=== PATIENT | female | born 1960 | race Hispanic/Latino ===

== ENCOUNTER 2020-07-02 12:29 | Emergency (ER) | payer OTHER ==
[~2020-07-02] VITALS: Ht 154.9 cm; Wt 67.1 kg
[2020-07-02] MEDS ORDERED: ONDANSETRON HCL INJ 2MG/ML 2ML 2 MG/ML VIAL IV STA (12:33)
[2020-07-02] MEDS ORDERED: MORPHINE SULFATE INJ 4 MG/ML INJ 1ML IV STA ×2 (12:33→12:39)
[2020-07-02] MEDS ORDERED: SODIUM CHLORIDE 0.9% 1000ML 1,000 ML IV STA (12:33)
--- NOTE | 2020-07-02 12:33 | Emergency Department Note ---
History of Present Illnes History of Present Illness History of Present Illness This is a 59 year old female with month long h/o of abd pain which has progressed to the RUQ and LLQ without n/v/f. Neg US and CT at . Historian: Patient Arrival Mode: Car Onset (how long ago): week(s) (4) Location: RUQ Radiation: Reports abdomen Severity: moderate Onset quality: gradual Duration (how long): week(s) Timing of current episode: constant Progression: worsening Chronicity: new Associated symptoms: Denies denies other symptoms, Denies confusion, Denies chest pain, Denies cough, Denies diaphoresis, Denies fever/chills, Denies headaches, Denies loss of appetite, Denies malaise, Denies nausea/vomiting, Denies rash, Denies seizure, Denies shortness of breath, Denies syncope, Denies weakness, Denies other Previous service: tests performed, observation, one or more referrals Past Medical/Family History Physician Review I have reviewed the patient's past medical and family history. Any updates have been documented here. Past Medical History Recent Fever: No Clinical Suspicion of Infectio: No Past Medical History: None Past Surgical History: None Social History Smoking Cessation: Never Smoker Alcohol Use: None Any Illegal Drug Use: No Review of Systems Review of Systems Constitutional: Reports no symptoms EENTM: Reports no symptoms Cardiovascular: Reports no symptoms Respiratory: Reports no symptoms Gastrointestinal: Reports abdominal pain; Denies nausea, Denies vomiting Genitourinary: Reports no symptoms Musculoskeletal: Reports no symptoms Integumentary: Reports no symptoms Neurological: Reports no symptoms Psychological: Reports no symptoms Endocrine: Reports no symptoms Hematological/Lymphatic: Reports no symptoms Physical Exam Related Data Allergies: Coded Allergies: No Known Allergies (Unverified , 07/02/20) Vital signs reviewed: Yes Physical Exam CONSTITUTIONAL Constitutional: Present well-developed, Present well-nourished HENT HENT: Present normocephalic, Present atraumatic, Present oropharynx clear/moist, Present nose normal HENT L/R: Present left ext ear normal, Present right ext ear normal EYES Eyes: Reports PERRL, Reports conjunctivae normal NECK Neck: Present ROM normal PULMONARY Pulmonary: Present effort normal, Present breath sounds normal CARDIOVASCULAR Cardiovascular: Present regular rhythm, Present heart sounds normal, Present capillary refill normal, Present normal rate GASTROINTESTINAL Abdominal: Present soft, Present tender (RUQ , LLQ) GENITOURINARY Genitourinary: Present exam deferred SKIN Skin: Present warm, Present dry MUSCULOSKELETAL Musculoskeletal: Present ROM normal NEUROLOGICAL Neurological: Present alert, Present oriented x 3, Present no gross motor or sensory deficits PSYCHOLOGICAL Psychological: Present mood/affect normal, Present judgement normal Results Laboratory Lab results reviewed: Yes Imaging Imaging results reviewed: Yes Impressions [place] [address] Patient Name: JUVENAL FLORES MR #: [id number] : 1960 Age/Sex: 59/F Req #: [id number] Adm Physician: Ordered by: REI MO DO Report #: [id number] Location: ER Room/Bed: Procedure: [id number] CT/CT ABDOMEN/PELVIS W Exam Date: 07/02/20 Exam Time: 1430 REPORT STATUS: Signed CT of the abdomen and pelvis, with contrast, 07/02/2020. History: Abdominal pain. Comparison: None available. Technique: Multidetector CT scanning of the abdomen and pelvis was performed from the level of the lung bases to the inferior pubic rami after intravenous administration of contrast. Coronal and sagittal multiplanar reformations were obtained. RADIATION DOSE: Total DLP: 690 mGy*cm Dose modulation, iterative reconstruction, and/or weight based adjustment of the mA/kV was utilized to reduce the radiation dose to as low as reasonably achievable. Discussion: LUNG BASES: No visualized abnormalities. ABDOMEN: Calcified granuloma are present within the spleen. The liver, gallbladder, biliary tree, pancreas, adrenal glands, and kidneys are normal. The hepatic vein, portal vein, and splenic vein are patent. The abdominal aorta is within normal limits for size. Evaluation of bowel is limited without oral contrast. There is no bowel dilatation. The appendix is visualized and is normal. There is no evidence of adenopathy or free fluid. PELVIS: The bladder is normal in appearance. The uterus and adnexa are absent. There is no evidence of free fluid or adenopathy. BONES AND SOFT TISSUES: Degenerative changes are present throughout the lumbar spine without evidence of lytic or sclerotic lesion. IMPRESSION: Findings of previous granulomatous disease within the abdomen. Otherwise unremarkable CT of the abdomen and pelvis. No evidence of cholelithiasis, appendicitis, nephrolithiasis, or bowel obstruction. Signed by: Rei Hernandez on 07/02/2020 3:07 PM Dictated By: REI HERNANDEZ MD 06 Transcribed By: MEI on 07/02/201506 COPY TO: REI MO DO~ [place] [address] Patient Name: JUVENAL FLORES MR #: [id number] : 1960 Age/Sex: 59/F Req #: [id number] Adm Physician: Ordered by: REI MO DO Report #: [id number] Location: ER Room/Bed: Procedure: [id number] DX/CHEST SINGLE (PORTABLE) Exam Date: 07/02/20 Exam Time: 1250 REPORT STATUS: Signed EXAMINATION: CHEST SINGLE (PORTABLE) INDICATION: Shortness of breath COMPARISON: None FINDINGS: AP view TUBES and LINES: None. LUNGS: Lungs are well inflated. Lungs are clear. There is no evidence of pneumonia or pulmonary edema. PLEURA: No pleural effusion or pneumothorax. HEART AND MEDIASTINUM: The cardiomediastinal silhouette is unremarkable. BONES AND SOFT TISSUES: Nonspecific elevation of the right hemidiaphragm. UPPER ABDOMEN: No free air under the diaphragm. IMPRESSION: No acute thoracic radiographic abnormality. Signed by: Lizzette Rae MD on 07/02/2020 1:10 PM Dictated By: LIZZETTE RAE MD 09 Transcribed By: MEI on 07/02/201309 COPY TO: REI MO DO~ Procedures 12 Lead ECG Interpretation ECG Interpretation : ECG: ECG 1 Security Systems Administrator: Interpreted by ED physician Date: Jul 02, 2020 Time: 13:06 Prior ECG tracings: reviewed Rhythm: sinus rhythm Rate: normal BPM: 78 QRS axis: normal ST segments normal: Yes T waves normal: Yes Clinical Impression: normal ECG Assessment & Plan Medical Decision Making MDM Diff Dx : appendicitis, biliary pathology, kidney stone, sepsis diverticulitis, ACS, SBO ,ischemic bowel . Assessment & Plan Final Impression: (1) Abdominal pain Depart Disposition: HOME, SELF-CARE REI MO DO Jul 02, 2020 12:33
[2020-07-02] MEDS ORDERED: ASPIRIN 81 MG CHEW TAB PO ONE (12:45)
[2020-07-02 12:49] LABS: BASOPHILS % 0.5 % (0.0-1.0); EOSINOPHILS % 0.2 % (0.0-6.0); HEMATOCRIT 35.6 % (34.2-44.1); HEMOGLOBIN 13.7 g/dL (12.0-16.0); LYMPHOCYTES # (AUTO) 2.3 (1.0-3.2); LYMPHOCYTES % 34.6 % (18.0-39.1); MEAN CORPUSCULAR HEMOGLOBIN 36.9 pg (28-32); MEAN CORPUSCULAR HGB CONC 38.5 g/dL (31-35); MONOCYTES # (AUTO) 0.3 (0.2-0.8); MONOCYTES % 4.9 % (4.4-11.3); NEUTROPHILS # (AUTO) 3.9 (2.1-6.9); NEUTROPHILS % 59.6 % (38.7-80.0); PLATELET COUNT 249 x10e3/uL (140-360); RED BLOOD COUNT 3.71 x10e6/uL (3.6-5.1); RED CELL DISTRIBUTION WIDTH 15.4 % (11.7-14.4)
[2020-07-02 13:09] LABS: ALANINE AMINOTRANSFERASE 25 IU/L (0-55); ALBUMIN 4.7 g/dL (3.5-5.0); ALBUMIN/GLOBULIN RATIO 1.4 (0.8-2.0); ALKALINE PHOSPHATASE 82 IU/L (40-150); ANION GAP 15.8 mmol/L (8-16); BLOOD UREA NITROGEN 14 mg/dL (7-26); BUN/CREATININE RATIO 16 (6-25); CALCIUM 9.7 mg/dL (8.4-10.2); CARBON DIOXIDE 25 mmol/L (22-29); CHLORIDE 104 mmol/L (98-107); CREATINE KINASE 108 IU/L (29-168); CREATININE, SERUM 0.89 mg/dL (0.57-1.11); EST GLOMERULAR FILTRATION RATE > 60 ML/MIN (60-); GLUCOSE 137 mg/dL (74-118); LIPASE 35 U/L (8-78); POTASSIUM 3.8 mmol/L (3.5-5.1); SODIUM 141 mmol/L (136-145)
[2020-07-02 13:09] LABS: CLARITY,URINE CLEAR (CLEAR); COLOR,URINE YELLOW (YELLOW)
[2020-07-02 13:10] LABS: BILIRUBIN,URINE NEGATIVE (NEGATIVE); KETONES,URINE NEGATIVE (NEGATIVE); LEUKOCYTE ESTERASE ,URINE NEGATIVE (NEGATIVE); NITRITE,URINE NEGATIVE (NEGATIVE); PROTEIN,URINE DIPSTICK NEGATIVE (NEGATIVE); URINE UROBILINOGEN 0.2 mg/dL (0.2 - 1)
--- NOTE | 2020-07-02 13:13 | Diagnostic Imaging Report ---
EXAMINATION: CHEST SINGLE (PORTABLE) INDICATION: Shortness of breath COMPARISON: None FINDINGS: AP view TUBES and LINES: None. LUNGS: Lungs are well inflated. Lungs are clear. There is no evidence of pneumonia or pulmonary edema. PLEURA: No pleural effusion or pneumothorax. HEART AND MEDIASTINUM: The cardiomediastinal silhouette is unremarkable. BONES AND SOFT TISSUES: Nonspecific elevation of the right hemidiaphragm. UPPER ABDOMEN: No free air under the diaphragm. IMPRESSION: No acute thoracic radiographic abnormality. Signed by: Kem Johnston MD on 07/02/2020 1:10 PM
[2020-07-02 13:24] LABS: RBC,URINE 0-5 /HPF (0-5); WBC,URINE (MAN) 0-5 /HPF (0-5)
[2020-07-02 13:25] LABS: BACTERIA,URINE RARE /HPF; EPITHELIAL CELLS,URINE FEW /LPF
--- OUTSIDE RECORDS SUMMARY | 2020-07-02 13:37 | XMS REPORT | Continuity of Care Document ---
Author Author [facility] t Organization [facility] Address [address] [place] [address] Phone Unavailable Care Team Providers Care Manager Landscape Name Role Phone Betty WHITAKER, Rolando PCP KAYLA MO Unavailable Betty WHITAKER, Rolando Attphys Payers Payer Name Policy Type Policy Number Effective Date Expiration Date Geronimo mathew [facility]CHOICE [id number] 2018-PresentHMO/ PPO [id number] 2018 00:00:00 Slava Blank Problems Condition Name Condition Details Condition Category Status Onset Date Resolution Date Last Treatment Date Treating Clinician Comments Source Fever blister Fever blister Disease Active 2018-08-09 00:00:00 Slava Blank Essential hypertension Essential hypertension Disease Active 2018-08-09 00:00:[address] Encounter for screening mammogram for breast cancer En counter for screening mammogram for breast cancer Disease Active 2018-08-09 00:00:00 Slava Blank Sciatica, left side Sciatica, left side Disease Active 2017-04-05 00:00 :00 Slava Blank Annual physical exam Annual physical exam Disease Active 00:00:00 Last Assessment & Plan: Melissa torres was seen today for Annual ExamWe discussed achieve/maintain a healthy weight, include regular cardiovascular exercise program, follow a healthy diet, continue current healthy lifestyle patterns Slava Blank Needs flu shot Needs flu shot Disease Active 2016-06-29 00:00:00 Slava Blnak History of Past Illness Condition Name Condition Details Condition Category Status Onset Date Resolution Date Last Treatment Date Treating Clinician Comments Source Sacroiliac dysfunction Sacroiliac dysfunction Disease Resolved 2017-02-28 00:00:00 2019-09-20 00:00:00 2019-09-20 00:25:44 H jose roberto Blank Allergies, Adverse Reactions, Alerts This patient has no known allergies or adverse reactions. Family History Family Member Diagnosis Comments Start Date Stop Date Source Natural mother Cancer [place] [facility] Natural sister Cancer [place] [facility] Natural sister Diabetes [place] [facility] Natural sister Hypertension Slava Blank Social History Social Habit Start Date Stop Date Quantity Comments Source Sex Assigned At Farooq campuzano Jain Tobacco use and exposure 2020-05-01 00:00:00 2020-05-01 00:00:00 Isidro jarrett used Slava Blank Alcohol intake 2020-05-01 00:00:00 2020-05-01 00:00:00 Current drinker of alcohol (finding) Slava Blank Smoking Status Start Date Stop Date Source Never smoker Slava Carmichael t Medications Ordered Medication Name Filled Medication Name Start Date Stop Da te Current Medication? Ordering Clinician Indication Dosage Frequency Signature (SIG) Comments Components Source cyclobenzaprine (FLEXERIL) 5 mg tablet 2020-04-19 2 00:00:00 2020-05-30 23:59:00 No Sciatica, left side 5mg QD Take 1 tablet (5 mg total) by mouth nightly for 30 days. Slava Blank Immunizations Ordered Immunization Name Filled Immunization Name Date Status Comments Source FLUBLOK QUAD PF 2019-09-17 00:00:00 Completed Slava Blank FLUBLOK QUAD PF 2018-08-09 00:00:00 Completed Slava Blank FLUZONE QUAD PF 2016-06-29 00:00:00 Completed Slava Blank Influenza, Unspecified 2014-05-20 00:00:00 Completed Slava Blank Vital Signs Vital Name Observation Time Observation Value Comments Source Systolic blood pressure 2020-04-30 09:11:00 159 mm[Hg] Slava Blank Diastolic blood pressure 2020-04-30 09:11:00 94 mm[Hg] Slava Blank Heart rate 2020-04-30 09:11:00 73 /min Slava Blank Body temperature 2020-04-30 09:11:00 37.17 Rubia [place] Jain Body height 2020-04-30 09:11:00 154.9 cm Slava Blank Body weight 2020-04-30 09:11:00 67.132 kg Slava Blank BMI 2020-04-30 09:11:00 27.96 kg/m2 Slava Blank Oxygen saturation in Arterial blood by Pulse oximetry 04-30 09:11:00 99 /min Slava Blank Procedures Procedure Date / Time Performed Performing Clinician [facility] e BONE DENSITY 2019-09-18 11:24:00 Rolando Hernández MAMMO BREAST SCREEN TOMOSYNTHESIS BILATERAL 2019-09-18 10:52:00 Rolando Hernández CBC WITH PLATELET AND DIFFERENTIAL 2019-09-17 08:50:00 Lisa Hernández COMPREHENSIVE METABOLIC PANEL 2019-09-17 08:50:00 Millie Hernández HEMOGLOBIN A1C 2019-09-17 08:50:00 Rolando Hernández LIPID PANEL WITH REFLEX TO DIRECT LDL 2019-09-17 08:50:00 Rolando Hernández T4, FREE 2019-09-17 08:50:00 Rolando Hernández THYROID STIMULATING HORMONE 2019-09-17 08:50:00 Rloando Hernández URINALYSIS, COMPLETE, WITH REFLEX TO CULTURE 2019-09-17 08:5 0:00 Rolando Hernández VITAMIN D 25 HYDROXY LEVEL 2019-09-17 08:50:00 Rolando Hernández Plan of Care Planned Activity Planned Date Details Comments Source Future Scheduled Test 2021-09-18 00:00:00 BREAST CANCER SCRE ENING [code = BREAST CANCER SCREENING] Slava Blank Future Scheduled Test 2020-04-19 00:00:00 INFLUENZA VACCINE [code = INFLUENZA VACCINE] Slava Blank Future Scheduled Test 2017-12-24 00:00:00 Screening for [place] neoplasm of cervix (procedure) [code = 622843378] Slava Carmichael t Future Scheduled Test 2012 00:00:00 COLONOSCOPY SCREEN ING [code = COLONOSCOPY SCREENING] Slava Blank Future Scheduled Test 2012 00:00:00 SHINGLES VACCINES (#1) [code = SHINGLES VACCINES (#1)] Slava Blank Encounters Start Date/Time End Date/Time Encounter Type Admission Type Attendi [facility] Care Department Encounter ID Source 2020-04-30 00:00:00 2020-04-30 00:00:00 Outpatient MOLINA HERNÁNDEZ [facility] [id number] [place] [facility] Results Test Description Test Time Test Comments Results Result Comments Source CHEST SINGLE (PORTABLE) 2020-07-02 13:09:00 [facility] : 1960 Sex: F [facility] [address] [place] [address] Patient Name: JUVENAL CHINCHILLA MR #: [id number] : 1960 Age/Sex: 59/F Req #: [id number] [facility] Physician: Ordered by: KAYLA MO DO Report #: [id number] Location: ER Room/Bed: Procedure: [id number] DX/CHEST SINGLE (PORTABLE) Exam Date: 07/02/20 Exam Time: 1250 REPORT STATUS: Signed EXAMINATION: CHEST SINGLE (PORTABLE) INDICATION: Shortness of breath COMPARISON: None FINDINGS: AP view TUBES and LINES: None. LUNGS: Lungs are well inflated. Lungs are clear. There is no evidence of pneumonia or pulmonary edema. PLEURA: No pleural effusion or pneumothorax. HEART AND MEDIASTINUM: The cardiomediastinal silhouette is unremarkable. BONES AND SOFT TISSUES: Nonspecific elevation of the right hemidiaphragm. UPPER ABDOMEN: No free air under the diaphragm. IMPRESSION: No acute thoracic radiographic abnormality. Signed by: Lizzette Rae MD on 07/02/2020 1:10 PM Dictated By: LIZZETTE RAE MD 09 Transcribed By: MEI on 07/02/201309 COPY TO: KAYLA MO DO Comprehensive metabolic panel 2019-09-18 08:38:00 Test Item Glucose (test code = 2345-7) 88 mg/dL 65-99 Fasting reference interval BUN (test code = 3094-0) 13 mg/dL 7-25 Creatinine (test code = 2160-0) 0.79 mg/dL 0.5-1.05 For patients >49 years of age, the reference limitfor Creatinine is approximately 13% higher for peopleidentified as -Japanese. EGFR Non-Afr. Japanese (test code = 2775) 84 > OR = 60 mL /min/1.73m2 EGFR (test code = 76649-8) 97 > OR = 60 mL/min/1.73m2 BUN/creatinine ratio (test code = 3097-3) NOT APPLICABLE 6- 22 (alma c) Sodium (test code = 2951-2) 137 mmol/L 135-146 Potassium (test code = 2823-3) 4.3 mmol/L 3.5-5.3 Chloride (test code = 2075-0) 103 mmol/L 98-110 CO2 (test code = 2027-9) 28 mmol/L 20-32 Calcium (test code = 77932-0) 10.2 mg/dL 8.6-10.4 Protein (test code = 2885-2) 7.8 g/dL 6.1-8.1 Albumin, S (test code = 1751-7) 4.6 g/dL 3.6-5.1 Globulin, total (test code = 17759-6) 3.2 1.9- 3.7 g/dL (c alc) Albumin/globulin ratio (test code = 1759-0) 1.4 1.0- 2.5 ( calc) Total bilirubin (test code = 1974-2) 0.7 mg/dL 0.2-1.2 Alkaline phosphatase (test code = 6768-6) 79 U/L 33-130 AST (test code = 1920-8) 21 U/L 10-35 ALT (test code = 1742-6) 16 U/L 6-29 KATIE (test code = KATIE) FASTING:YESFASTING: YES RAC (test code = RAC) Performing Organization Info rmation: Site ID: CLARA Name: [facility] Address: [address] [place], [place] [id number] Director: Nima Pedersen [facility] [id number] 08:38:00* Test Item Value Reference Range Interpretation Comments Hemoglobin A1C (test code = 4548-4) 5.2 <5.7 % of total Hg b For the purpose of screening for the presence ofdiabetes: <5.7% Consistent with the absence of diabetes5.7-6.4% Consistent with increased risk for diabetes (prediabetes)> or =6.5% Consistent with diabetes This assay result is consistent with a decreased riskof diabetes. Currently, no consensus exists regarding use ofhemoglobin A1c for diagnosis of diabetes in children. According to [place] Diabetes Association (ADA)guidelines, hemoglobin A1c <7.0% represents optimalcontrol in non- diabetic patients. Differentmetrics may apply to specific patient populations. Standards of Medical Care in Diabetes(ADA). KATIE (test code = KATIE) FASTING:YESFASTING: YES RAC (test code = RAC) Performing Organization Info rmation: Site ID: CLARA Name: [facility] Address: [address] [place] [address] Director: Nima BlankT4, [id number] 08:38:00* Test Item Value Reference Range Interpretation Comments T4, free (test code = 3024-7) 1.0 ng/dL 0.8-1.8 KATIE (test code = KATIE) FASTING:YESFASTING: YES RAC (test code = RAC) Performing Organization Info rmation: Site ID: CLARA Name: [facility] Address: [address] [place] [phone] Director: Nima Aquino [place] JainThyroid stimulating [id number] 08:38:00* Test Item Value Reference Range Interpretation Comments TSH (test code = 3016-3) 1.73 0.40- 4.50 mIU/L KATIE (test code = KATIE) FASTING:YESFASTING: YES RAC (test code = RAC) Performing Organization Info rmation: Site ID: RGA Name: [facility] Address: [address] [place] [phone] Director: Nima Aquino [place] [facility] with platelet and [id number] 08:38:00* Test Item Value Reference Range Interpretation Comments WBC (test code = 6690-2) 4.7 3.8- 10.8 Thousand/uL RBC (test code = 789-8) 4.33 3.80- 5.10 Million/uL HGB (test code = 718-7) 13.5 g/dL 11.7-15.5 HCT (test code = 4544-3) 40.8 % 35-45 MCV (test code = 787-2) 94.2 fL 80-100 MCH (test code = 785-6) 31.2 pg 27-33 MCHC (test code = 786-4) 33.1 g/dL 32-36 RDW (test code = 788-0) 12.4 % 11-15 Platelet count (test code = 777-3) 390 140- 400 Thousand/u L MPV (test code = 776-5) 10.2 fL 7.5-12.5 Neutrophils, absolute (test code = 751-8) 2327 1,500 - 7,80 0 cells/uL Lymphocytes, absolute (test code = 731-0) 1918 850- 3,900 c ells/uL Monocytes, absolute (test code = 742-7) 338 200- 950 cells /uL Eosinophils, absolute (test code = 711-2) 89 15- 500 cell s/uL Basophils, absolute (test code = 704-7) 28 0- 200 cells/u L Neutrophils (test code = 770-8) 49.5 % Lymphocytes (test code = 736-9) 40.8 % Monocytes (test code = 5905-5) 7.2 % Eosinophils (test code = 713-8) 1.9 % Basophils + RC (test code = 706-2) 0.6 % KATIE (test code = KATIE) FASTING:YESFASTING: YES RAC (test code = RAC) Performing Organization Info rmation: Site ID: RGA Name: [facility] Address: [address] [place] [phone] Director: Nima Aquino [place] [facility]itamin D 25 hydroxy [id number] 08:38:00* Test Item Value Reference Range Interpretation Comments Vitamin D, 25-hydroxy (test code = 1988-11) 29 ng/mL 30-100 L Vitamin D Status 25-OH Vitamin D: Deficiency: <20 ng/mLInsufficiency: 20 - 29 ng/mLOptimal: > or = 30 ng/mL For 25-OH Vitamin D testing on patients on D2-supplementation and patients for whom quantitation of D2 and D3 fractions is required, the QuestAssureD(TM)25-OH VIT D, (D2,D3), LC/MS/MS is recommended: order code 17189 (patients >2yrs). For more information on this test, go to:http://education.CTMG/faq/XGM009(This link is being provided for informational/educational purposes only.) KATIE (test code = KATIE) FASTING:YESFASTING: YES RAC (test code = RAC) Performing Organization Info rmation: Site ID: RGA Name: [facility] Address: [address] [place] [id number] Director: Nima Aquino Lab Interpretation (test code = 86414-0) Abnormal [place] MethodistLIPID PANEL WITH REFLEX TO DIRECT [id number] 08:38:00* Test Item Value Reference Range Interpretation Comments Cholesterol, total (test code = 2093-3) 272 mg/dL <200 H HDL cholesterol (test code = 2085-9) 72 mg/dL >50 Triglycerides (test code = 2571-8) 120 mg/dL <150 LDL cholesterol calculated (test code = 56412-3) 175 mg/dL (calc) H Reference range: <100 Desirable range <100 mg/dL for primary prevention; <70 mg/dL for patients with CHD or diabetic patients with > or = 2 CHD risk factors. LDL-C is now calculated using the Tab-Walter calculation, which is a validated novel method providing better accuracy than the Friedewald equation in the estimation of LDL-C. Tab SS et al. RIDGE. 2013;310(19): 4887-8369 (http:/ /education.Intercom/faq/RYN539) Cholesterol/HDL ratio (test code = 9830-1) 3.8 <5.0 (calc) Non-HDL cholesterol (test code = 96190-5) 200 <130 mg/dL ( calc) H For patients with diabetes plus 1 major ASCVD risk factor, treating to a non-HDL-C goal of <100 mg/dL (LDL-C of <70 mg/dL) is considered a therapeutic option. KATIE (test code = KATIE) FASTING:YESFASTING: YES RAC (test code = RAC) Performing Organization Info rmation: Site ID: RGA Name: [facility] Address: [address] [place] [phone] Director: Nima Aquino Lab Interpretation (test code = 33261-1) Abnormal [place] MethodistURINALYSIS, COMPLETE, WITH REFLEX TO [id number] 08:38:00 * Test Item Value Reference Range Interpretation Comments Color, UA (test code = 5778-6) YELLOW YELLOW Appearance (test code = 5767-9) CLEAR CLEAR Specific gravity, urine (test code = 5811-5) 1.018 1.001-1.0 35 pH, urine (test code = 5803-2) 5.5 5.0-8.0 Glucose, urine (test code = 04998-4) NEGATIVE NEGATIVE Bilirubin, UA (test code = 5770-3) NEGATIVE NEGATIVE Ketones, UA (test code = 2514-8) NEGATIVE NEGATIVE Occult blood, urine (test code = 5794-3) NEGATIVE NEGATIVE Protein, UA (test code = 12520-9) NEGATIVE NEGATIVE Nitrite, UA (test code = 5802-4) NEGATIVE NEGATIVE Leukocyte esterase, UA (test code = 5799-2) NEGATIVE NEGATIVE WBC, UA (test code = 5821-4) 0-5 < OR = 5 /HPF RBC, UA (test code = 74023-3) NONE SEEN < OR = 2 /HPF Squamous epithelial cells, UA (test code = 20737-7) 0-5 < OR = 5 /HPF Bacteria, UA (test code = 5769-5) NONE SEEN NONE SEEN /HPF Hyaline casts, UA (test code = 5796-8) NONE SEEN NONE SEEN /LPF Reflex (test code = 630-4) NO CULTURE INDICATED KATIE (test code = KATIE) FASTING:YESFASTING: YES RAC (test code = RAC) Performing Organization Info rmation: Site ID: RGA Name: [facility] Address: [address] [place] [phone] Director: Nima Blank
--- OUTSIDE RECORDS SUMMARY | 2020-07-02 13:37 | XMS REPORT | Clinical Summary ---
Author Author Slava [facility] Organization [facility] Address Unknown Phone Unavailable Care Team Providers Care Investigation Division Lieutenant Name Role Phone Rolando Hernández MD PCP Allergies Comments Active Allergy Reactions Severity Noted Date No Known Drug Allergies 12/10/2015 Medications End Date Status Medication Sig Dispensed Refills Start Date 05/30/2020 cyclobenzaprine Take 1 tablet 30 tablet 0 04/30/20 2 (FLEXERIL) 5 mg (5 mg total) 0 tabletIndications: by mouth Sciatica, left side nightly for 30 days. Active Problems Problem Noted Date Fever blister 08/09/2018 Essential hypertension 08/09/2018 Encounter for screening mammogram for breast cancer 08/09/2018 Sciatica, left side 04/05/2017 Annual physical exam 07/26/2016 Last Assessment & Plan: Dianelys was seen today for Annual Exam We discussed achieve/maintain a healthy weight, include regular cardiovascular exercise program, follow a healthy diet, continue current healthy lifestyle patterns Needs flu shot 06/29/2016 Resolved Problems Problem Noted Date Resolved Date Sacroiliac dysfunction 02/28/2017 09/20/2019 Last Assessment & Plan: Symptoms moderate. R sacroilitis R GISSELLE test positive, -continue hip and spine conditioning pr ogram -nsaid, activity modification Encounters Care Team Description Date Type Specialty Rolando Hernández MD Sciatica, left side (Primary Dx) 04/30/2020 Office Visit Family Medicine Rolando Hernández MD 04/30/2020 Telephone Family Medicine 04/30/2020 Travel 04/22/2020 Travel Rolando Hernández MD Annual physical exam (Primary Dx); Need for influenza vaccination; Vitamin D deficiency; Breast cancer screening; Post-menopausal 09/17/2019 Office Visit Family Medicine after 07/02/2019 Immunizations Name Administration Dates Next Due FLUBLOK QUAD PF 09/17/2019, 08/09/2018 FLUZONE QUAD PF 06/29/2016 Influenza, Unspecified 05/20/2014 Surgical History Surgery Date Site/Laterality Comments TOTAL ABDOMINAL 07/20/1998 BSO HYSTERECTOMY - 08/18/1998 COLONOSCOPY 09/19/2010 - 09/18/2011 RELEASE, DORSAL 04/03/2018 Wrist/Left Procedure: FIR ST DORSAL COMPARTMENT RELEASE OF COMPARTMENT, WRIST WRIST-Left; Surgeon: Vanna Murray MD; Location: [facility] [place] [facility]; Service: O rthopedics; Laterality: Left; ORTHOPEDIC SURGERY 04/03/2018 left wrist Medical History Medical History Date Comments H/O mammogram 2013 Anxiety History of ectopic History of menorrhagia Family History Medical History Relation Name Comments Cancer Mother Cameron Chavez Lung Cancer Cancer Sister Juliana Breast Cancer [place] Hypertension Sister Juliana [place] Hypertension Sister Hypertension Sister Diabetes Sister Kristine Leon Hypertension Sister rKistine Leon Relation Name Status Comments Mother Cameron Chavez lung ca Sister Juliana [place] Breast Sister Sister Sister Kristine Leon Social History Date Tobacco Use Types Packs/Day Years Used Never Smoker Smokeless Tobacco: Never Used Tobacco Cessation: Counseling Given: No Drinks/Week oz/Week Comments Alcohol Use 4 Glasses of wine 0 Cans of beer 0 Shots of liquor 6 Standard drinks or equivalent Yes Sex Assigned at Date Recorded Not on file Last Filed Vital Signs Reading Time Taken Comments Vital Sign 159/94 04/30/2020 9:11 AM CDT Blood Pressure 73 04/30/2020 9:11 AM CDT Pulse 37.2 C (98.9 F) 04/30/2020 9:11 AM CDT Temperature - - Respiratory Rate 99% 04/30/2020 9:11 AM CDT Oxygen Saturation - - Inhaled Oxygen Concentration 67.1 kg (148 lb) 04/30/2020 9:11 AM CDT Weight 154.9 cm (5' 1") 04/30/2020 9:11 AM CDT Height 27.96 04/30/2020 9:11 AM CDT Body Mass Index Plan of Treatment Care Team Description Date Type Specialty Rolando Hernández MD [address] [place] [address] [phone] 07/07/2020 Office Visit Family Medicine Health Maintenance Due Date Last Done Comments COLONOSCOPY SCREENING 2012 SHINGLES VACCINES (#1) 2012 CERVICAL CANCER SCREENING 12/24/2017 12/24/2014 INFLUENZA VACCINE 04/19/2020 09/17/2019, 08/09/2018, 06/29/2016, Additional history exists BREAST CANCER SCREENING 09/18/2021 09/18/2019, 08/17/2018, 08/17/2018, Additional history exists Procedures Comments Procedure Name Priority Date/Time Associated Diag nosis BONE DENSITY Routine 09/18/2019 Annual physical exam 11:24 AM [facility] Post-menopausal MAMMO BREAST SCREEN Routine 09/18/2019 Breast can cer screening TOMOSYNTHESIS BILATERAL 10:52 AM [facility] VITAMIN D 25 HYDROXY Routine 09/17/2019 Vitamin D deficiency LEVEL 8:50 AM [facility] URINALYSIS, COMPLETE, Routine 09/17/2019 Annual p hysical exam WITH REFLEX TO CULTURE 8:50 AM [facility] THYROID STIMULATING Routine 09/17/2019 Annual phy sical exam HORMONE 8:50 AM [facility] T4, FREE Routine 09/17/2019 Annual physical exam 8:50 AM [facility] LIPID PANEL WITH REFLEX Routine 09/17/2019 Annual physical exam TO DIRECT LDL 8:50 AM [facility] HEMOGLOBIN A1C Routine 09/17/2019 Annual physical exam 8:50 AM [facility] COMPREHENSIVE METABOLIC Routine 09/17/2019 Annual physical exam PANEL 8:50 AM [facility] CBC WITH PLATELET AND Routine 09/17/2019 Annual p hysical exam DIFFERENTIAL 8:50 AM [facility] after 07/02/2019 Results * Bone Density (09/18/2019 11:24 AM [facility]) Specimen Narrative Performed At EXAMINATION: BONE DENSITY HM [facility] CLINICAL HISTORY: Z00.00 Encounter fo r general adult medical examination without abnormal findings, Z78.0 Asympt omatic menopausal state, Osteoporosis Screening. Osteoporosis screening. The results of this study expressed as bone mineral density (BMD) were as follows: AP spine (L1- L4) BMD: 0.991 g/cm2 T-Score: -1.6 Right femoral neck: BMD: 0.756 g/cm2 T-Score: -2.0 Right Femur (Total): BMD: 0.897 g/cm2 T-Score: -0.9 Right femur FRAX: Risk factors: None. 10 year probability of fracture: 1. Major osteoporotic: 4.7% 2. Hip:0.6% Left femoral neck: BMD: 0.768 g/cm2 T-Score: -1.9 Left Femur (Total): BMD: 0.906 g/cm2 T-Score: -0.8 Dual Femur (Total Mean): BMD: 0.902 g/cm2 T-Score: -0.8 IMPRESSION: Osteopenia. [id number] A copy of this scan including a report detailing these results will follow. Note: The world health organization (WH O) has classified the patient's T-score as follows: Above (-1) as normal (-1) to (-2.5) as low (osteopenia) Below (-2.5) as abnormally low (osteopo rosis, increased fracture risk) Procedure Note Hm Interface, Radiology Results Incoming - 09/18/2019 12:22 PM [facility] EXAMINATION: BONE DENSITY CLINICAL HISTORY: Z00.00 Encounter for general adult medical examination without abnormal findings, Z78.0 Asymptomatic menopausal state, Osteoporosis Screening. Osteoporosis screening. The results of this study expressed as bone mineral density (BMD) were as follows: AP spine (L1- L4) BMD: 0.991 g/cm2 T-Score: -1.6 Right femoral neck: BMD: 0.756 g/cm2 T-Score: -2.0 Right Femur (Total): BMD: 0.897 g/cm2 T-Score: -0.9 Right femur FRAX: Risk factors: None. 10 year probability of fracture: 1. Major osteoporotic: 4.7% 2. Hip:0.6% Left femoral neck: BMD: 0.768 g/cm2 T-Score: -1.9 Left Femur (Total): BMD: 0.906 g/cm2 T-Score: -0.8 Dual Femur (Total Mean): BMD: 0.902 g/cm2 T-Score: -0.8 IMPRESSION: Osteopenia. [id number] A copy of this scan including a report detailing these results will follow. Note: The world health organization (WHO) has classified the patient's T-score as follows: Above (-1) as normal (-1) to (-2.5) as low (osteopenia) Below (-2.5) as abnormally low (osteoporosis, increased fracture risk) Performing Organization Address [facility] P marialuisa Number [facility] [address] [place] [address] * Mammo Breast Screen Tomosynthesis Bilateral (09/18/2019 10:52 AM [facility]) Specimen Narrative Performed At PROCEDURE: MAMMO BREAST SCREEN TOMOSYNTHESIS BILATERA L [facility] Computer aided detection was utilized f or the interpretation of the digital bilateral screening mammography with to mosynthesis. COMPARISON: Prior studies dating back t o 12/26/2014 DENSITY: Breast parenchyma is heterogen eously dense, decreasing the sensitivity of the study. There is post surgical ch anges due to reduction mammoplasty in both breasts. There is no evidence of n ew irregular masses, architectural distortions or grouped calcifications. IMPRESSION: No mammographic evidence of malignancy. RECOMMENDATION: Comparison with physica l exam and annual screening mammography. BI-RADS 2: Benign. This facility is accredited by the [facility] [employer] for Mammography. A negative x-ray report should not eugene y biopsy if a dominant or clinically suspicious mass is present. Not all c ancers are identified by x-ray. [id number] Performing Organization Address [facility] P marialuisa Number [facility] [address] [place] [address] * URINALYSIS, COMPLETE, WITH REFLEX TO CULTURE (09/17/2019 8:50 AM [facility]) Color, UA YELLOW YELLOW [facility] [place] Appearance CLEAR CLEAR [facility] [place] Specific 1.018 1.001 - 1.035 [facility] gravity, urine [facility] [place] pH, urine 5.5 5.0 - 8.0 [facility] [place] Glucose, urine NEGATIVE NEGATIVE [facility] [place] Bilirubin, UA NEGATIVE NEGATIVE [facility] [place] Ketones, UA NEGATIVE NEGATIVE [facility] [place] Occult blood, NEGATIVE NEGATIVE [facility] urine [facility] [place] Protein, UA NEGATIVE NEGATIVE [facility] [place] Nitrite, UA NEGATIVE NEGATIVE [facility] [place] Leukocyte NEGATIVE NEGATIVE [facility] esterase, UA [facility] [place] WBC, UA 0-5 < OR = 5 /HPF [facility] [place] RBC, UA NONE SEEN < OR = 2 /HPF [facility] [place] Squamous 0-5 < OR = 5 /HPF [facility] epithelial [facility]AGNOSTICS cells, UA [place] Bacteria, UA NONE SEEN NONE SEEN /HPF [facility] [place] Hyaline casts, NONE SEEN NONE SEEN /LPF [facility] UA [facility] [place] Reflex NO CULTURE INDICATED [facility] [place] Specimen Narrative Performed At FASTING:YES [facility] FASTING: YES Resulting Agency Comment Performing Organization Information: Site ID: [id number] Name: [facility] Address: [address] [place] [phone] Director: Nima Aquino Performing Organization Address City/State/ZIP Code P marialuisa Number [facility] [address] [phone] * LIPID PANEL WITH REFLEX TO DIRECT LDL (09/17/2019 8:50 AM [facility]) Cholesterol, 272 (H) <200 mg/dL [facility] total [facility] [place] HDL cholesterol 72 >50 mg/dL [facility] [place] Triglycerides 120 <150 mg/dL [facility] [place] LDL cholesterol 175 (H) mg/dL (calc) [facility] calculated Comment: DIAGNOSTICS Reference range: <100 [place] Desirable range <100 mg/dL for primary prevention; <70 mg/dL for patients with CHD or diabetic patients with > or = 2 CHD risk factors. LDL-C is now calculated using the Tab-Jose Angel calculation, which is a validated novel method providing better accuracy than the Friedewald equation in the estimation of LDL-C. Tab SS et al. RIDGE. 2013;310(19): 4424-5934 (http://education.Dynamixyz.com/faq/MYW794) Cholesterol/HDL 3.8 <5.0 (calc) [facility] ratio [facility] [place] Non-HDL 200 (H) <130 mg/dL (calc) [facility] cholesterol Comment: DIAGNOSTICS For patients with diabetes [place] plus 1 major ASCVD risk factor, treating to a non-HDL-C goal of <100 mg/dL (LDL-C of <70 mg/dL) is considered a therapeutic option. Specimen Narrative Performed At FASTING:YES [facility] FASTING: YES Resulting Agency Comment Performing Organization Information: Site ID: [id number] Name: [facility] Address: [address] [place] [phone] Director: Nima Aquino Performing Organization Address City/[facility]/ZIP Code P marialuisa Number [facility] [address] [phone] * Vitamin D 25 hydroxy level (09/17/2019 8:50 AM [facility]) Pathologist [facility] Vitamin D, 29 (L) 30 - 100 ng/mL [facility] 25-hydroxy Comment: DIAGNOSTICS Vitamin D Status [place] 25-OH Vitamin D: Deficiency: <20 ng/mL Insufficiency: 20 - 29 ng/mL Optimal: > or = 30 ng/mL For 25-OH Vitamin D testing on patients on D2-supplementation and patients for whom quantitation of D2 and D3 fractions is required, the QuestAssureD(TM) 25-OH VIT D, (D2,D3), LC/MS/MS is recommended: order code 56870 (patients >2yrs). For more information on this test, go to: http://education.Push Computing/faq/CRR006 (This link is being provided for informational/educational purposes only.) Specimen Blood Narrative Performed At FASTING:YES [facility] FASTING: YES Resulting Agency Comment Performing Organization Information: Site ID: [id number] Name: [facility] Address: [address] [place] [phone] Director: Nima Aquino Performing Organization Address [facility] P marialuisa Number [facility] [address] [phone] * CBC with platelet and differential (09/17/2019 8:50 AM [facility]) [facility] WBC 4.7 3.8 - 10.8 [facility] Thousand/uL [facility] [place] RBC 4.33 3.80 - 5.10 [facility] Million/uL [facility] [place] HGB 13.5 11.7 - 15.5 g/dL [facility] [place] HCT 40.8 35.0 - 45.0 % [facility] [place] MCV 94.2 80.0 - 100.0 fL [facility] [place] MCH 31.2 27.0 - 33.0 pg [facility] [place] MCHC 33.1 32.0 - 36.0 g/dL [facility] [place] RDW 12.4 11.0 - 15.0 % [facility] [place] Platelet count 390 140 - 400 [facility] Thousand/uL [facility] [place] MPV 10.2 7.5 - 12.5 fL [facility] [place] Neutrophils, 2,327 1,500 - 7,800 [facility] absolute cells/uL [facility] [place] Lymphocytes, 1,918 850 - 3,900 cells/uL [facility] absolute [facility] [place] Monocytes, 338 200 - 950 cells/uL [facility] absolute [facility] [place] Eosinophils, 89 15 - 500 cells/uL [facility] absolute [facility] [place] Basophils, 28 0 - 200 cells/uL [facility] absolute [facility] [place] Neutrophils 49.5 % [facility] [place] Lymphocytes 40.8 % [facility] [place] Monocytes 7.2 % [facility] [place] Eosinophils 1.9 % [facility] [place] Basophils + RC 0.6 % [facility] [place] Specimen Blood Narrative Performed At FASTING:YES [facility] FASTING: YES Resulting Agency Comment Performing Organization Information: Site ID: [id number] Name: [facility] Address: [address] [place] [phone] Director: Nima Aquino Performing Organization Address [facility] P marialuisa Number [facility] [place] [phone] * Thyroid stimulating hormone (09/17/2019 8:50 AM [facility]) TSH 1.73 0.40 - 4.50 mIU/L [facility] [place] Specimen Blood Narrative Performed At FASTING:YES [facility] FASTING: YES Resulting Agency Comment Performing Organization Information: Site ID: [id number] Name: [facility] Address: [address] [place] [phone] Director: Nima Aquino Performing Organization Address [facility] P marialuisa Number [facility] [place] [phone] * T4, free (09/17/2019 8:50 AM [facility]) T4, free 1.0 0.8 - 1.8 ng/dL [facility] [place] Specimen Blood Narrative Performed At FASTING:YES [facility] FASTING: YES Resulting Agency Comment Performing Organization Information: Site ID: RGA Name: [facility] Address: [address] [place] [phone] Director: Nima Aquino Performing Organization Address [facility] P marialuisa Number [facility] [place] [phone] * Hemoglobin A1c (09/17/2019 8:50 AM [facility]) Hemoglobin A1C 5.2 <5.7 % of total Hgb [facility] Comment: DIAGNOSTICS For the purpose of screening [place] for the presence of diabetes: <5.7% Consistent with the absence of diabetes 5.7-6.4% Consistent with increased risk for diabetes (prediabetes) > or =6.5% Consistent with diabetes This assay result is consistent with a decreased risk of diabetes. Currently, no consensus exists regarding use of hemoglobin A1c for diagnosis of diabetes in children. According to [place] Diabetes Association (ADA) guidelines, hemoglobin A1c <7.0% represents optimal control in non- diabetic patients. Different metrics may apply to specific patient populations. Standards of Medical Care in Diabetes(ADA). Specimen Blood Narrative Performed At FASTING:YES [facility] FASTING: YES Resulting Agency Comment Performing Organization Information: Site ID: [id number] Name: [facility] Address: [address] [place] [phone] Director: Nima Aquino Performing Organization Address City/State/ZIP Code P marialuisa Number [facility] [address] [phone] * Comprehensive metabolic panel (09/17/2019 8:50 AM [facility]) Glucose 88 65 - 99 mg/dL [facility] Comment: DIAGNOSTICS Fasting [place] reference interval BUN 13 7 - 25 mg/dL [facility] [place] Creatinine 0.79 0.50 - 1.05 mg/dL [facility] Comment: DIAGNOSTICS For patients >49 years of age, [place] the reference limit for Creatinine is approximately 13% higher for people identified as -I[place]qi. EGFR Non-Afr. 84 > OR = 60 [facility] [place] mL/min/1.73m2 [facility] EGFR 97 > OR = 60 [facility] [place] mL/min/1.73m2 [facility] BUN/creatinine NOT APPLICABLE 6 - 22 (calc) [facility] ratio [facility] Sodium 137 135 - 146 mmol/L [facility] [place] Potassium 4.3 3.5 - 5.3 mmol/L [facility] [place] Chloride 103 98 - 110 mmol/L [facility] [place] CO2 28 20 - 32 mmol/L [facility] [place] Calcium 10.2 8.6 - 10.4 mg/dL [facility] [place] Protein 7.8 6.1 - 8.1 g/dL [facility] [place] Albumin, S 4.6 3.6 - 5.1 g/dL [facility] [place] Globulin, total 3.2 1.9 - 3.7 g/dL [facility] (calc) [facility] [place] Albumin/globuli 1.4 1.0 - 2.5 (calc) [facility] n ratio [facility] [place] Total bilirubin 0.7 0.2 - 1.2 mg/dL [facility] [place] Alkaline 79 33 - 130 U/L [facility] phosphatase [facility] [place] AST 21 10 - 35 U/L [facility] [place] ALT 16 6 - 29 U/L [facility] [place] Specimen Blood Narrative Performed At FASTING:YES [facility] FASTING: YES Resulting Agency Comment Performing Organization Information: Site ID: [id number] Name: [facility] Address: [address] [place] [phone] Director: Nima Aquino Performing Organization Address City/State/ZIP Code P marialuisa Number [facility] [place] [address] [place] [phone] after 07/02/2019 Insurance Type Payer Benefit Subscriber ID Effective Phone Address Plan / Dates Group HMO/PPO [facility] [id number] [id number] resent CHOICE/CHO ICE + Advance Directives For more information, please contact: [phone] Patient Interlibrary Loan Services Librarian Explanation Type Date Recorded Advance Directives, 03/27/2018 4:52 PM Living Will and Medical Power of Pre Planning Advisor
[2020-07-02] MEDS ORDERED: SODIUM CHLORIDE 0.9% 50ML 50 ML ONE (14:25)
[2020-07-02] MEDS ORDERED: IOPAMIDOL 370 MG/ML 200 ML INFUS..BTL INJ ONE (14:25)
--- NOTE | 2020-07-02 15:10 | Diagnostic Imaging Report ---
CT of the abdomen and pelvis, with contrast, 07/02/2020. History: Abdominal pain. Comparison: None available. Technique: Multidetector CT scanning of the abdomen and pelvis was performed from the level of the lung bases to the inferior pubic rami after intravenous administration of contrast. Coronal and sagittal multiplanar reformations were obtained. RADIATION DOSE: Total DLP: 690 mGy*cm Dose modulation, iterative reconstruction, and/or weight based adjustment of the mA/kV was utilized to reduce the radiation dose to as low as reasonably achievable. Discussion: LUNG BASES: No visualized abnormalities. ABDOMEN: Calcified granuloma are present within the spleen. The liver, gallbladder, biliary tree, pancreas, adrenal glands, and kidneys are normal. The hepatic vein, portal vein, and splenic vein are patent. The abdominal aorta is within normal limits for size. Evaluation of bowel is limited without oral contrast. There is no bowel dilatation. The appendix is visualized and is normal. There is no evidence of adenopathy or free fluid. PELVIS: The bladder is normal in appearance. The uterus and adnexa are absent. There is no evidence of free fluid or adenopathy. BONES AND SOFT TISSUES: Degenerative changes are present throughout the lumbar spine without evidence of lytic or sclerotic lesion. IMPRESSION: Findings of previous granulomatous disease within the abdomen. Otherwise unremarkable CT of the abdomen and pelvis. No evidence of cholelithiasis, appendicitis, nephrolithiasis, or bowel obstruction. Signed by: Rei Hernandez on 07/02/2020 3:07 PM
[2020-07-02] MEDS ORDERED: DONNATAL/LIDOCAINE/MAALOX 30 ML SUSP PO STA (15:58)
[2020-07-02 16:06] VITALS: BP 129/58
[2020-07-02] MEDS ORDERED: MAGNESIUM/ALUMINUM/SIMETHICONE 30 ML UDC ONE (16:08)
[2020-07-02] MEDS ORDERED: BELLADONNA ALK/PHENOBARBITAL 5 ML UDC ONE (16:08)
[2020-07-02] MEDS ORDERED: LIDOCAINE VISC 2% SOLN 15 ML UDC ONE (16:08)
== END 2020-07-02 16:05 | disposition home or self-care (01) ==
LOC: ER 13:33
DX: R10.11 Right upper quadrant pain (principal)
CPT/HCPCS: 36415; 71045; 74177; 80053; 81001; 82550; 82553; 83690; 83880; 84484; 85025; 93005; 99284; J2270; J2405; J7030; Q9967

== ENCOUNTER → 2020-08-11 | Outpatient (CLI) | payer OTHER ==
--- NOTE | 2020-08-11 12:53 | Diagnostic Imaging Report ---
Barium Enema: Clinical History: Incomplete colonoscopy Comparison: None Total Patient Fluoro Time: 1.48 minutes Radiation dose: 44.2 mGy air Kerma After barium was administered in a retrograde fashion via a rectal tube followed by air and multiple fluoroscopy spot and overhead images were obtained over the abdomen. Barium refluxed into the terminal ileum. The editor in chief radiograph shows no significant abnormality. There is no evidence of intrinsic or extrinsic mass effect. There is no evidence of mucosal alteration. There is no evidence of a mass. There is no evidence of obstruction. Impression: Unremarkable double contrast Barium Enema. Signed by: Shine Reed MD on 08/11/2020 12:49 PM
== END ==
LOC: DX 08:06
PROVIDERS: ATTEND Internal Medicine Gastroenterology
DX: R12 Heartburn (principal); K66.0 Peritoneal adhesions (postprocedural) (postinfection)
CPT/HCPCS: 74280